=== PATIENT | male | born 2000 | race Caucasian/White ===

== ENCOUNTER 2021-01-25 18:35 | Emergency (ER) | payer MEDICAID ==
--- NOTE | 2021-01-25 19:02 | NUR ---
THE PATIENT WAS DISCHARGED FROM THE ER AFTER BEING REUNITED WITH HIS MOTHER VIA [employer]. HE WAS IN NO APPARENT DISTRESS. HE HAS A HISTORY OF AUTISM.
== END 2021-01-25 19:05 | disposition home or self-care (01) ==
LOC: ER 18:36 → EDBD 18:36 → ER 19:05
DX: Z02.89 Encounter for other administrative examinations (principal); F84.0 Autistic disorder
CPT/HCPCS: 99283